=== PATIENT | male | born 1965 | race Caucasian/White ===

== ENCOUNTER → 2024-02-05 07:21 | Outpatient (REF) | payer BC, SELFPAY | LOC: HWRAD 07:21 | PROVIDERS: ATTENDING PHYSICIAN Orthopaedic Surgery Orthopaedic Trauma; FAMILY PHYSICIAN Family Medicine | DX: M20.011 Mallet finger of right finger(s) (principal); M79.641 Pain in right hand | CPT/HCPCS: 73200 ==